=== PATIENT | female | born 1960 | race Caucasian/White ===

== ENCOUNTER → 2017-03-27 | Outpatient (CLI) | payer BC ==
[2015-07-08 08:00] VITALS: BP 97/57
[~2017-03-27] MED LIST: ATEN25TA PO; ESOM40CA PO; HYDR25TA PO; ISOS30TA4 PO; LEVO75TA5 PO; PRAV40TA2 PO
--- NOTE | 2017-03-27 11:33 | CARD ---
APPROVED REPORT EXAM: Two-dimensional and M-mode echocardiogram with Doppler and color Doppler. Other Information Quality : GoodHR: 65bpm Rhythm : NSR INDICATION Cardiac Disease: CAD RISK FACTORS Hypertension Obesity Hyperlipidemia Family History Smoking 2D DIMENSIONS RVDd3.1 (2.9-3.5cm)Left Atrium(2D)2.7 (1.6-4.0cm) IVSd0.7 (0.7-1.1cm)Aortic Root(2D)3.3 (2.0-3.7cm) LVDd4.7 (3.9-5.9cm)LVOT Diameter2.0 (1.8-2.4cm) PWd0.8 (0.7-1.1cm)LVDs3.2 (2.5-4.0cm) FS (%) 30.7 %SV58.4 ml LVEF(%)58.3 (>50%) Aortic Valve AoV Peak Cesar.122.1cm/sAoV VTI27.7cm AO Peak GR.6.0mmHgLVOT Peak Cesar.122.7cm/s AO Mean GR.4mmHgAVA (VMAX)3.12cm2 Mitral Valve MV E Trunkzgr70.2cm/sMV E Peak Gr.3mmHg MV DECEL [id number] A Bphespam21.9cm/s MV E Mean Gr.1mmHgE/A Ratio1.3 MV A Bcmfsroz120pg Pulmonary Valve PV Peak Rjolpazc41.3cm/s Tricuspid Valve TR P. Xjrpdeji525cf/sTR Peak Gr.21mmHg Pulmonary Vein S1 Xedrqexl16.8cm/sD2 Hdxhgtlv49.1cm/s PVa [id number] LEFT VENTRICLE The left ventricle is normal size. There is normal left ventricular wall thickness. The left ventricu lar systolic function is normal and the ejection fraction is within normal range. The Ejection Fracti on is 50-55%. The ajith-septal wall motion suggestive of post-operative state. The anterior wall is mildly hypokinetic. The left ventricular diastolic function and filling is normal for age. RIGHT VENTRICLE The right ventricle is normal size. There is normal right ventricular wall thickness. The right ventr icular systolic function is normal. ATRIA The left atrium size is normal. The right atrium size is normal. The interatrial septum is intact wit h no evidence for an atrial septal defect or patent foramen ovale as noted on 2-D or Doppler imaging. AORTIC VALVE The aortic valve is mildly thickened. The aortic valve is trileaflet. Doppler and Color Flow revealed no significant aortic regurgitation. There is no significant aortic valvular stenosis. MITRAL VALVE The mitral valve leaflets are thickened. There is no evidence of mitral valve prolapse. There is no m itral valve stenosis. Doppler and Color Flow revealed no mitral valve regurgitation noted. TRICUSPID VALVE Doppler and Color Flow revealed mild tricuspid regurgitation. The pulmonary artery systolic pressure is estimated at 26 mmHg. There is no pulmonary hypertension. PULMONIC VALVE The pulmonary valve is normal in structure and function. Doppler and Color Flow revealed no pulmonic valvular regurgitation. There is no pulmonic valvular stenosis. GREAT VESSELS The aortic root is normal in size. The ascending aorta is normal in size. The pulmonary artery is nor mal. The IVC is normal in size and collapses >50% with inspiration. PERICARDIAL EFFUSION There is no evidence of significant pericardial effusion. Critical Notification Critical Value: No <Conclusion> The left ventricular systolic function is normal and the ejection fraction is within normal range. Th e Ejection Fraction is 50-55%. The ajith-septal wall motion suggestive of post-operative state. The anterior wall is mildly hypokin etic.
== END | disposition home or self-care (01) ==
LOC: ECHO 07:41
PROVIDERS: ATTEND Internal Medicine Cardiovascular Disease
DX: I07.1 Rheumatic tricuspid insufficiency (principal)
CPT/HCPCS: 93306

== ENCOUNTER 2017-05-27 06:50 | Day surgery (SDC) | payer BC ==
[~2017-05-27] VITALS: Ht 205 cm; Wt 93.0 kg
[~2017-05-27 06:50] MED LIST changes: +ASPI-630 PO; +IBUP-1060 PO
[2017-05-27] MEDS ORDERED: PROCHLORPERAZINE 10 MG/2 ML VIAL. IV PRN (07:00)
[2017-05-27] MEDS ORDERED: IV RINGERS,LACTATED 1000ML 1,000 ML IV SCH (07:00)
[2017-05-27] MEDS ORDERED: ONDANSETRON PF 4 MG/2 ML VIAL. IV PRN (07:00)
[2017-05-27] MEDS ORDERED: LIDOCAINE 1% 1 ML SYRINGE. ID PRN (07:00)
[2017-05-27] MEDS ORDERED: MORPHINE SULFATE 2 MG/ML DISP.SYRIN. IV PRN (07:00)
[2017-05-27] MEDS ORDERED: HYDROmorphone 2 MG/ML VIAL IV PRN (07:00)
[2017-05-27] MEDS ORDERED: fentaNYL PF VIAL 100 MCG/2 ML VIAL IV PRN (07:00)
[2017-05-27] MEDS ORDERED: BUPIVACAINE MPF 0.5% 30 ML VIAL. ONE (07:20)
[2017-05-27] MEDS ORDERED: LIDOCAINE 1% 20 ML VIAL. ONE (07:20)
[2017-05-27] MEDS ORDERED: EPINEPHrine VIAL 30 MG/30 ML VIAL ONE (07:20)
[2017-05-27] MEDS ORDERED: ROPIVacaine 0.5% PF 30 ML VIAL. ONE ×2 (07:49→09:26)
[2017-05-27] MEDS ORDERED: MIDAZOLAM HCL/PF 2 MG/2 ML VIAL. ONE (07:51)
[2017-05-27] MEDS ORDERED: ROCURONIUM 100 MG/10 ML VIAL. ONE (08:01)
[2017-05-27] MEDS ORDERED: fentaNYL PF VIAL 100 MCG/2 ML VIAL ONE ×3 (08:01→09:56)
--- NOTE | 2017-05-27 08:08 | DISCH ---
DISCHARGE INSTRUCTIONS Condition on Discharge Condition on Discharge: Stable Activity After Discharge Activity Instructions for Disc: Other ROM activity Other activity instructions: arm to remain in lsing, ROM exercises twice daily Bathing Instructions: Shower-keep dressing dry Weight Bearing Status after Di: Non weight bearing Diet after Discharge Diet after Discharge: Regular Wound Incision Care Wound/Incision Care: Ice to area for comfort, Keep wound/cast CDI, Change dressing Contacting the DR. after DC Call your doctor for: Concerns you may have Follow-Up Follow up with: Kar in 2wks QASIM LIANG II, MD May 27, 2017 08:08
--- NOTE | 2017-05-27 08:11 | PDOC4 ---
Operative Note Operative Note Date of surgery: 05/27/2017 Surgeon: Gutierrez Liang MD Preoperative diagnosis: Right frozen shoulder Postoperative diagnosis: Same Procedure performed: Arthroscopic right shoulder capsular release and closed manipulation Anesthesia Gen. plus regional nerve block Findings: Examination under anesthesia demonstrated passive forward elevation to proximally 90, external rotation to 20, abduction to 80 and internal rotation of 10 She had thickened capsule primarily posteriorly and in the rotator interval. There was no rotator cuff tear. She had some fraying at her superior labrum. Her glenohumeral cartilage demonstrated some grade 1 changes anteriorly but otherwise was intact and without pathology. Blood loss: Complications: Reason for procedure: Patient is a very pleasant 56-year-old female with hypothyroidism has had frozen shoulder has been refractory to conservative therapies and injections for many months. Please see my outpatient notes for full details. Because of failure to improve and her lack of motion at her shoulder, we had a discussion of the risks, benefits, and alternatives to the above surgery and she elected to proceed. Description of procedure: Patient was greeted by myself in the preoperative area where the correct extremity was verified and marked. She was taken back to the operative suite and her antibiotics were started after she had placement of the regional nerve block by the anesthesiology team.. Once in the operating room , she was transferred gently supine to the operating room table after successful induction of a general anesthetic. We then sat her up in a beachchair position and maintained her C-spine in a neutral position. Her eyes were protected. We had a large pad under her legs. She was secured to the bed. I then conducted my examination under anesthesia with the above-noted findings. We then proceeded to prep and drape in her usual sterile fashion and conducted our standard preoperative timeout. I then palpated and marked her surface anatomy and used a spinal needle to localize a posterior superior portal and incised skin in accordance with this. After this, I introduced a blunt arthroscopic trocar into the glenohumeral joint. I then introduced the camera. I then used a spinal needle to localize an anterosuperior portal and incised skin in accordance with this. I then dilated this hole and inserted my probe and conducted my diagnostic arthroscopy. After this, I placed a clear cannula through the anterosuperior portal and then placed my camera through this to inspect the posterior aspect of the shoulder joint. From this vantage point, I used a fine pointed cautery device to transect the abundant fibrotic tissue posteriorly. After I had accomplished a release here, I reposition the camera through the posterior superior portal and withdrew the cannula from the anterosuperior portal. I then used electrocautery device at the rotator interval. Her subscapularis was mobile. After this, I withdrew the arthroscopic instrumentation and performed closed manipulation. After this her for elevation was approximately 140, her external rotation was 45, internal rotation was 30 . We then closed skin with simple interrupted 2-0 nylon. The arm was cleansed and dried and sterile dressing was applied. Her right upper extremity is in place into a sling. She tolerated surgery well. No competitions. At the conclusion of the surgery, she was laid gently supine and then transferred to the recovery room cart and taken to the PACU in a stable and x-ray condition. Postop plan is nonweightbearing 6 weeks. I did stress to her and her the importance of range of motion exercises and physical therapy. We will see her back in 2 weeks, sooner should a problem arise GUTIERREZ LIANG II, MD May 27, 2017 08:11
[2017-05-27] MEDS ORDERED: GLYCOPYRROLATE 1 MG/5 ML VIAL. ONE (08:21)
[2017-05-27] MEDS ORDERED: NEOSTIGMINE 10 MG/10 ML VIAL. ONE (09:22)
[2017-05-27] MEDS ORDERED: DEXAMETHASONE SOD PHOS 20 MG/5 ML VIAL. ONE (09:26)
[2017-05-27] MEDS ORDERED: ONDANSETRON PF 4 MG/2 ML VIAL. ONE (09:26)
[2017-05-27] MEDS ORDERED: PROPOFOL 20 ML IV ONE (09:26)
[2017-05-27] MEDS ORDERED: SEVOFLURANE 61 TO 120 MINUTES. IH ONE (09:26)
[2017-05-27] MEDS ORDERED: LIDOCAINE 2% PF Vial for OR 5 ML VIAL. ONE (09:26)
[2017-05-27] MEDS ORDERED: OXYC-323 PO (09:43)
[2017-05-27] MEDS ORDERED: oxyCODONE/APAP 5/325 1 TAB TABLET PO PRN ×2 (10:00)
[2017-05-27] MEDS: fentaNYL PF VIAL 100 MCG/2 ML VIAL IV PRN ×2 (10:00→10:07)
[2017-05-27 10:50] VITALS: BP 123/76
== END 2017-05-27 11:15 | disposition home or self-care (01) ==
LOC: SURG 06:50
PROVIDERS: ATTEND Orthopaedic Surgery Sports Medicine
DX: M75.01 Adhesive capsulitis of right shoulder (principal); E03.9 Hypothyroidism, unspecified; I25.10 Atherosclerotic heart disease of native coronary artery without angina pectoris; I10 Essential (primary) hypertension; K21.9 Gastro-esophageal reflux disease without esophagitis; M19.90 Unspecified osteoarthritis, unspecified site; Z90.710 Acquired absence of both cervix and uterus; Z87.39 Personal history of other diseases of the musculoskeletal system and connective tissue; Z86.39 Personal history of other endocrine, nutritional and metabolic disease; Z72.0 Tobacco use
CPT/HCPCS: 29825; C1782; J0171; J0690; J1100; J2250; J2405; J2704; J2710; J2795; J3010; J3490; J2001

== ENCOUNTER → 2019-11-21 | Outpatient (CLI) | payer BC ==
[~2019-11-21] MED LIST changes: +OXYC1TAB15 PO
--- NOTE | 2019-11-21 08:31 | RAD ---
Clinical Indications: History of peripheral artery disease and coronary artery disease. Asymptomatic.. Exam : Carotid Duplex with Grayscale Ultrasound and Spectral and Color Doppler Analysis: PQRS Compliance Statement - Stenosis calculations for CT, MR and conventional angiography are based upon measurement of the distal ICA diameter in accordance with the NASCET methodology. Stenosis calculations for carotid ultrasound studies are derived from validated velocity criteria which are known to correlate with the NASCET methodology. Comparison study: None available. Findings: The common, internal and external carotid arteries were examined by grayscale, color and spectral Doppler ultrasound. There is minimal evidence of atherosclerotic disease with no significant stenosis in the visualized vessels. Flow in both vertebral arteries was antegrade and normal. The following are the velocities and ratios in the carotid arteries on both sides: RIGHT ICA PV: 49cm/sec RIGHT CCA PV: 69cm/sec RIGHT ICA ED: 17cm/sec RIGHT IC/CCPV: Less than 1 RIGHT VERTEBRAL: antegrade flow RIGHT % STENOSIS: Less than 50 percent LEFT ICA PV: 62cm/sec LEFT CCA PV: 73cm/sec LEFT ICA ED: 20cm/sec LEFT IC/CCPV: Less than 1 LEFT VERTEBRAL: antegrade flow LEFT % STENOSIS: Less than 50 percent <50% ICA Stenosis: PSV < 125cm/s (EDV < 40cm/s; SVR < 2.0) 50-69% ICA Stenosis: PSV < 125-229cm/s (EDV 40-99cm/s; SVR 2.0-3.9) >70% ICA Stenosis: PSV > 230cm/s (EDV >100cm/s; SVR >4.0) Impression: Essentially normal bilateral carotid and vertebral artery spectral and color Doppler analysis exam with only minimal atherosclerotic plaque but no hemodynamically significant stenosis. Electronically signed by: Miriam Alves MD (11/21/2019 8:28 AM) [facility]
== END | disposition home or self-care (01) ==
LOC: US 06:42
PROVIDERS: ATTEND Internal Medicine Cardiovascular Disease
DX: I65.23 Occlusion and stenosis of bilateral carotid arteries (principal); I25.10 Atherosclerotic heart disease of native coronary artery without angina pectoris; E78.5 Hyperlipidemia, unspecified
CPT/HCPCS: 93880

== ENCOUNTER → 2019-11-25 | Outpatient (CLI) | payer BC ==
--- NOTE | 2019-11-25 09:38 | CARD ---
MR#: [id number] Date of Study: 11/25/2019 Ordering Physician: DEBBIE PORTILLO, Referring Physician: DEBBIE PORTILLO, Tech: Yessi Moss [facility] APPROVED REPORT EXAM: Two-dimensional and M-mode echocardiogram with Doppler and color Doppler. Other Information Quality : AdequateHR: 69bpm Rhythm : NSR INDICATION CAD. Hx: CABG, HLP, HTN, tobacco abuse. 2D DIMENSIONS RVDd3.2 (2.9-3.5cm)IVSd0.8 (0.7-1.1cm) Aortic Root(2D)3.7 (2.0-3.7cm)LVDd4.9 (3.9-5.9cm) LVOT Diameter2.0 (1.8-2.4cm)PWd0.8 (0.7-1.1cm) LVDs3.6 (2.5-4.0cm)FS (%) 26.2 % SV56.8 mlLVEF(%)51.2 (>50%) Aortic Valve AoV Peak Cesar.115.4cm/William Peak GR.5.3mmHg LVOT Peak Cesar.94.4cm/sAVA (VMAX)2.44cm2 Mitral Valve MV E Tbthzqmw75.7cm/sMV DECEL [id number] MV A Snguawfi86.1cm/sE/A Ratio0.8 MV A Xrnuhqiq192rv Tricuspid Valve TR P. Dhcruifq965ob/sTR Peak Gr.16mmHg [id number] Pulmonary Vein S1 Vfaldypu60.5cm/sD2 Bdxqrauc98.4cm/s PVa [id number] LEFT VENTRICLE The left ventricle is normal size. There is normal left ventricular wall thickness. The left ventricu lar systolic function is low normal. The Ejection Fraction is 50-55%. There is normal LV segmental wa ll motion. Transmitral Doppler flow pattern is Grade I-abnormal relaxation pattern. RIGHT VENTRICLE The right ventricle is normal size. The right ventricular systolic function is normal. ATRIA The left atrium size is normal. The right atrium size is normal. The interatrial septum is intact wit h no evidence for an atrial septal defect or patent foramen ovale as noted on 2-D or Doppler imaging. AORTIC VALVE The aortic valve is normal in structure and function. No aortic regurgitation. No aortic valvular warren nosis. MITRAL VALVE The mitral valve is normal in structure and function. There is no mitral valve stenosis. Trace mitral regurgitation. TRICUSPID VALVE The tricuspid valve is normal in structure and function. Trace tricuspid regurgitation. The PA pressu re was estimated at 20-25 mmHg. There is no tricuspid valve stenosis. PULMONIC VALVE The pulmonic valve is not well visualized. GREAT VESSELS The aortic root is normal in size. The ascending aorta is normal in size. The IVC is normal in size a nd collapses >50% with inspiration. PERICARDIAL EFFUSION There is no evidence of significant pericardial effusion. Critical Notification Critical Value: No <Conclusion> The left ventricular systolic function is low normal. The Ejection Fraction is 50-55%. There is normal LV segmental wall motion. Signed by : Debbie Portillo, Electronically Approved : 11/25/2019 09:37:34
[2019-11-25 10:33] LABS: ALBUMIN 3.8 g/dL (3.4-5.0); ALK PHOS 114 U/L (46-116); ANION GAP 8 (6-14); AST (SGOT) 23 U/L (15-37); BLOOD UREA NITROGEN 9 mg/dL (7-20); BUN/CREATININE RATIO 10 (6-20); CALCIUM 9.8 mg/dL (8.5-10.1); CARBON DIOXIDE 30 mmol/L (21-32); CHLORIDE 104 mmol/L (98-107); CHOLESTEROL 167 mg/dL (0-200); CREATININE 0.9 mg/dL (0.6-1.0); GFR 64.5; GLUCOSE 85 mg/dL (70-99); HDLC 48 mg/dL (40-60); LDLC 93 mg/dL (0-100); POTASSIUM 4.3 mmol/L (3.5-5.1); SODIUM 142 mmol/L (136-145); TOTAL BILIRUBIN 0.6 mg/dL (0.2-1.0); TOTAL PROTEIN 7.7 g/dL (6.4-8.2); TRIGLYCERIDES 131 mg/dL (0-150); VLDLC 26 mg/dL (0-40)
[2019-11-25 10:34] LABS: ALT (SGPT) < 6 U/L (14-59); CHOLESTEROL/HDL RATIO 3.5
== END | disposition home or self-care (01) ==
LOC: ECHO 08:39
PROVIDERS: ATTEND Internal Medicine Cardiovascular Disease
DX: Z95.1 Presence of aortocoronary bypass graft (principal); E78.5 Hyperlipidemia, unspecified
CPT/HCPCS: 36415; 80053; 80061; 83721; 93306